=== PATIENT | female | born 1960 ===

== ENCOUNTER 2020-10-10 11:59 | Outpatient (CLI) | payer OTHER, SELFPAY ==
--- NOTE | 2020-10-10 11:45 | DI.RAD_ITS ---
Exam(s) XR ANKLE LT COMPLETE EXAM: XR ANKLE LT COMPLETE CLINICAL HISTORY: S/P inversion of L ankle. Antalgic gait. Edema., LT ANKLE PAIN, M25.572 TECHNIQUE: 2D digital imaging was performed. COMPARISON: No exams were available for comparison FINDINGS: BONES: No acute fracture is present. No bony destructive lesion is seen. There is a small enthesophyt e at the Achilles insertion site. JOINTS:The ankle mortise is normally aligned. SOFT TISSUE: Normal. IMPRESSION: No acute fracture or dislocation. DATA REPOSITORY: RADIATION DOSE DELIVERED:
== END 2020-10-10 12:19 ==
PROVIDERS: Visit Provider Nurse Practitioner Family
DX: G89.11 Acute pain due to trauma (principal); M25.572 Pain in left ankle and joints of left foot; R26.89 Other abnormalities of gait and mobility; R60.0 Localized edema; X50.1XXA Overexertion from prolonged static or awkward postures, initial encounter; Y99.8 Other external cause status
CPT/HCPCS: 73610